=== PATIENT | female | born 1990 | race American Indian/Alaskan Native ===

== ENCOUNTER 2017-05-16 18:23 | Emergency (ER) | payer MEDICAID ==
[2017-05-16 18:42] VITALS: BP 111/64
--- NOTE | 2017-05-16 21:04 | Emergency Department Report ---
HPI - General Chief Complaint: Urogenital-Female Time Seen by Provider: 05/16/17 20:31 - HPI HPI: This is a 26-year-old female presents to ED complaining of vaginal irritation for the past 3 days. Patient states on she was visiting at a friend's and she use of the teres decrease to to wash. Since then she is had some irritation in her vaginal area. Patient states on Wednesday she noticed whitish clumpy vaginal discharge. + She denies fever/chills/nausea/vomiting/dysuria/ vaginal bleeding/sexually active. ED Past Medical Hx - Past Medical History Previous Medical History?: No - Surgical History Past Surgical History?: No - Social History Smoking Status: Current Every Day Smoker Substance Use Type: None - Medications Home Medications: Home Medications Medication Instructions Recorded Confirmed Last Taken Type traMADol [Ultram] 50 mg PO Q6HR PRN #14 tablet 03/30/15 Unknown Rx Ibuprofen [Motrin 600 MG tab] 600 mg PO Q8H PRN #30 tablet 05/16/17 Unknown Rx Sulfamethoxazole/Trimethoprim 1 each PO BID #14 tablet 05/16/17 Unknown Rx [Bactrim DS TAB] Terconazole [Terazol 3 Vag Cream] 1 applicator VG QHS #1 cream.appl 05/16/17 Unknown Rx ED Review of Systems ROS: Stated complaint: YEAST INFECTION Other details as noted in HPI Constitutional: denies: chills, fever Eyes: denies: eye pain, eye discharge, vision change ENT: denies: ear pain, throat pain Respiratory: denies: cough, shortness of breath, wheezing Cardiovascular: denies: chest pain, palpitations Endocrine: no symptoms reported Gastrointestinal: denies: abdominal pain, nausea, diarrhea Genitourinary: denies: urgency, dysuria, frequency, hematuria, discharge, dyspareunia Musculoskeletal: denies: back pain, joint swelling, arthralgia Skin: denies: rash, lesions Neurological: denies: headache, weakness, paresthesias Psychiatric: denies: anxiety, depression Hematological/Lymphatic: denies: easy bleeding, easy bruising Physical Exam - Physical Exam Vital Signs: Vital Signs 05/16/17 18:38 Temperature 98.5 F Pulse Rate 90 Respiratory 18 Rate Blood Pressure 111/64 O2 Sat by Pulse 100 Oximetry Physical Exam: GENERAL: Alert and oriented x3, no apparent distress, Normal Gait, atraumatic. HEAD: Head is normocephalic and a-traumatic. LUNGS: Symetrical with respiration, No wheezing, no rales or crackles, CTAB. HEART: S1, S2 present, regular rate and rhythm without murmur, no rubs, no gallops. Non tender to palpation ABDOMEN: No organomegaly was noted,Positive bowel sounds, soft, and non- distended. . Nontender to palpation on all Quadrants, NO CVA tenderness. GENITOURINARY: External genitalia erythematous and mildly swollen, mild discharge. Vaginal vault is with moderate white chuncky discharge. Cervix is of normal color without lesion. Cervical os is closed. No bleeding noted. Uterus is noted to be of normal size and nontender. No cervical motion tenderness. No masses are palpated. The adnexa are without masses or tenderness. SKIN: Warm and dry, No lesions, No ulceration or induration present. ED Course Vital Signs 05/16/17 18:38 Temperature 98.5 F Pulse Rate 90 Respiratory 18 Rate Blood Pressure 111/64 O2 Sat by Pulse 100 Oximetry ED Medical Decision Making - Medical Decision Making 26-year-old female presents with cystitis/vaginitis ED course: Urinalysis, urine test, wet prep ordered. Results show greater than 20% clue cells and yeast. Urinalysis shows positive bacteria Discussed findings with patient. Patient given Flagyl and Diflucan in ED. Discussed home medication of Bactrim and Terazol cream to apply to the outside of vaginal areas. Discussed the patient follow up with [facility] as preferred Vital signs are normal patient is in no acute distress. Critical care attestation.: If time is entered above; I have spent that time in minutes in the direct care of this critically ill patient, excluding procedure time. ED Disposition Clinical Impression: Vaginitis and vulvovaginitis UTI (urinary tract infection) Qualifiers: Urinary tract infection type: acute cystitis Hematuria presence: with hematuria Qualified Code(s): N30.01 - Acute cystitis with hematuria Disposition: TO HOME OR SELFCARE Is pt being admited?: No Does the pt Need Aspirin: No Condition: Stable Instructions: Vulvovaginal Candidiasis (ED), Vaginitis (ED), Urinary Tract Infection in Women (ED) Prescriptions: Terconazole [Terazol 3 Vag Cream] 1 applicator VG QHS #1 cream.appl Ibuprofen [Motrin 600 MG tab] 600 mg PO Q8H PRN #30 tablet PRN Reason: Pain Sulfamethoxazole/Trimethoprim [Bactrim DS TAB] 1 each PO BID #14 tablet Referrals: PRIMARY CAREMD [Primary Care Provider] - 3-5 Days LENA MAO MD [Referring] - 3-5 Days [facility] [Outside] - 3-5 Days Forms: Work/School Release Form(ED) Time of Disposition: 22:24
[2017-05-16 21:32] LABS: Bacteria,Urine 1+ /HPF (Negative); Bilirubin,Urine NEG (Negative); Blood,Urine NEG (Negative); Ketones,Urine NEG (Negative); Leukocyte Esterase,Urine NEG (Negative); Mucus,Urine FEW /HPF; Nitrite,Urine NEG (Negative); Protein,Urine <15 mg/dL mg/dL (Negative); Urobilinogen,Urine < 2.0 mg/dL (<2.0)
[2017-05-16] MEDS ORDERED: DIFLUCAN PO ONE (22:21)
[2017-05-16] MEDS ORDERED: FLAGYL PO ONE (22:21)
== END 2017-05-16 22:47 | disposition home or self-care (01) ==
LOC: ED 18:23
DX: N76.0 Acute vaginitis (principal); N39.0 Urinary tract infection, site not specified; F17.210 Nicotine dependence, cigarettes, uncomplicated
CPT/HCPCS: 81001; 81025; 87210; 99283